=== PATIENT | male | born 1960 | race Caucasian/White ===

== ENCOUNTER 2019-05-28 08:00 | Outpatient (CLI) | payer BC ==
[~2019-05-28 08:00] MED LIST: REGADENOSON 0.4 MG/5 ML SYRINGE ONE
== END 2019-05-28 23:59 | disposition home or self-care (01) ==
LOC: CFH 08:00
PROVIDERS: ATTEND Internal Medicine Cardiovascular Disease
DX: I34.0 Nonrheumatic mitral (valve) insufficiency (principal); I10 Essential (primary) hypertension
CPT/HCPCS: 78452; 93017; 93306; A9502; J2785

== ENCOUNTER 2019-05-29 07:35 | Outpatient (CLI) | payer BC | END 2019-05-29 23:59 | disposition home or self-care (01) | LOC: CFH 07:35 | PROVIDERS: ATTEND Internal Medicine Cardiovascular Disease | DX: Z02.9 Encounter for administrative examinations, unspecified (principal) ==